=== PATIENT | male | born 2005 | race Caucasian/White ===

== ENCOUNTER 2024-10-08 17:06 | Emergency (ER) | payer BC, SELFPAY ==
[2024-10-08 17:31] VITALS: BP 109/78
--- NOTE | 2024-10-08 19:11 | ED.GENMED ---
History of Present Illness
General
Chief Complaint: Skin Problem
Source: patient
Time Seen by Provider: 10/08/24 18:14
History of Present Illness
History of Present Illness:
18-year-old male with no significant past medical history presents emergency department for evaluation after he was diagnosed with a right thigh cellulitis yesterday by urgent care, has taken 2 total doses of doxycycline, the redness has gone
outside of the borders and was recommended by urgent care that if it did so he should come to the ER to be further evaluated. Patient states he feels as if he is in his usual state of health, denies any fevers, chills, rigors, nausea or vomiting.
States he is overall unsure as to what may have potentially caused the infection. Denies any known tick bites or mosquito bites. No other concerns presently.
Past History
Past History
ED Past Medical History: None
ED Past Surgical History: Orthopedic
Social History
Tobacco: Non-smoker
Alcohol: None
Drug: None
Personal: Single
Living: with family
Review of Systems
Review of Systems
All Other Systems: ROS reviewed and negative except as documented in HPI and ROS
Phy Exam
Physical Exam
Physical Exam:
GENERAL: Alert , in no apparent distress
EYE: conjunctiva clear
Head: Normocephalic atraumatic
NECK: Supple,
ENT: mmm.
LUNGS: no acute respiratory distress
NEUROLOGICAL: Alert and oriented
SKIN: Warm and dry, circular approximately 2-1/2 x 2-1/2 cm erythematous area to the lateral mid thigh which is warm to the touch and somewhat tender. No streaking/lymphangitis
MUSCULOSKELETAL: well perfused.
PSYCH: Normal and appropriate interaction.
Scores
Heart Failure Risk
Heart Failure Risk Score: Not Applicable
Heart Score for Chest Pain Patients
STEMI patient?: Not applicable
Withdrawal Assessment of Alcohol
Withdrawal Assessment Completed?: Not applicable
Course
Vital Signs
Initial and Last Documented VS:
Initial Vital Signs
Temp Pulse Resp BP Pulse Ox
99.2 F 85 18 109/78 99
10/08/24 17:31 10/08/24 17:31 10/08/24 17:31 10/08/24 17:31 10/08/24 17:31
Last Documented Vital Signs
Temp Pulse Resp BP Pulse Ox
99.2 F 85 18 109/78 99
10/08/24 17:31 10/08/24 17:31 10/08/24 17:31 10/08/24 17:31 10/08/24 19:12
MDM/Problems Addressed
Differential Diagnosis Includes:
- Cellulitis
- Abscess
- Impetigo
- Insect bite
- Contact dermatitis
- Erythema migrans/Lyme's rash
MDM/Problems Addressed:
18-year-old male presenting to the ER for evaluation of what appears to be a right thigh cellulitis, diagnosed yesterday, has taken 2 total doses of doxycycline. Discussed with patient and father based off presentation we could either admit the
patient for IV antibiotics or he can continue the oral antibiotics given he is only had 1 total day of antibiotics at this time. Patient is hemodynamically stable, well-appearing, no immunocompromising diseases, no fevers. At this time patient and
father both felt comfortable being discharged home to continue oral antibiotic with close monitoring and return precautions for any signs of worsening infection. They are both happy and agreeable to this plan. Stable for discharge home otherwise.
*Pulse Oximetry
SaO2: 99
Oxygen Mode of Delivery: Room air
Patient hypoxic: no
*Critical Care Note
Total Time (30-74mins, 75-104mins- exclusive of procedures): Not Applicable
ED Attending Note
-
Portions of this chart may have been created with voice recognition software.� Occasional wrong word or��sound alike� substitutions may have occurred due to the inherent limitations of voice recognition software.
Discharge Plan
Departure
Patient Disposition: Home (Routine Discharge)
Date of Disposition: 10/08/24
Time of Disposition: 19:11
Patient with high blood pressure during this ER visit?: No
Discharge Problem:
Cellulitis of right thigh
Instructions: Cellulitis (Skin Infection), Adult (DC)
Referrals:
UNKNOWN - PT NOT,INTERVIEWE [Family Provider]
Interventions
Interventions:
*Risk Screen - Suicide Last Done: 10/08/24 17:31
*General Assessment Last Done: 10/08/24 17:31
*Neglect/Abuse Screening Last Done: 10/08/24 17:59
*ED- Fall Risk Assessment Last Done: 10/08/24 17:59
*ED COVID-19 Vaccine History Last Done: 10/08/24 17:31
ED-Skin Assessment Last Done: 10/08/24 18:10
Discharge Date and Time
Print Language: PERSIAN
[2024-10-08 19:16] VITALS: BP 112/82
== END 2024-10-08 19:18 | disposition home or self-care (01) ==
LOC: EMR 17:06
PROVIDERS: EMERGENCY PHYSICIAN Student in an Organized Health Care Education/Training Program
DX: L03.115 Cellulitis of right lower limb (principal)
CPT/HCPCS: 99282